=== PATIENT | female | born 1965 | race Two or more races ===

== ENCOUNTER 2022-03-20 11:54 | Emergency (ER) | payer MEDICAID, OTHER ==
[~2022-03-20] VITALS: Ht 170.2 cm; Wt 90.0 kg
[2022-03-20 14:07] VITALS: BP 119/99
== END 2022-03-20 15:53 | disposition home or self-care (01) ==
LOC: ER 11:54
DX: D23.71 Other benign neoplasm of skin of right lower limb, including hip (principal); M79.661 Pain in right lower leg
CPT/HCPCS: 93971

== ENCOUNTER 2024-12-18 16:04 | Inpatient (IN) | payer MEDICAID ==
[~2024-12-18] VITALS: Ht 170.2 cm; Wt 92.5 kg
[2024-12-18 16:08] VITALS: BP 159/96; RESP 16; TEMP 98.7; O2SAT 97
[2024-12-18 16:23] VITALS: PULSE 83
[2024-12-18 16:43] LABS: Hemoglobin 14.4 g/dL (12.2-16.2); Nucleated Red Blood Cells % 0.1 %
[2024-12-18 16:44] LABS: Hematocrit 41.8 % (36.0-46.0); Mean Corpuscular Hemoglobin 34.0 pg (28.0-32.0); Mean Corpuscular Volume 98.4 fL (80.0-100.0)
[2024-12-18 16:51] LABS: Chloride 106 mmol/L (98-107); Potassium 3.8 mmol/L (3.5-5.1); Sodium 142 mmol/L (136-145)
[2024-12-18 16:52] LABS: Anion Gap 10 (5-15); Carbon Dioxide 26 mmol/L (20-31)
[2024-12-18 16:53] LABS: Calcium 9.3 mg/dL (8.7-10.4)
[2024-12-18 16:57] LABS: BUN/Creatinine Ratio 13.3 (10.0-20.0); Blood Urea Nitrogen 12 mg/dL (9-23); Glucose 118 mg/dL (74-106)
--- NOTE | 2024-12-18 16:58 | ED.PDOC ---
History of Present Illness HPI Comments 59-year-old female with a history of hypertension, presents with chief complaint of dizziness, headache, lethargy, and bleeding from her left ear status post mechanical fall and head injury. Patient reports on onset of symptoms, today, following recent fall and head injury a few days ago. No reported loss of consciousness then. No reported modifiers. No history of previous head injuries in the past. Denies any weakness, numbness, tingling, or further associated symptoms. Chief Complaint: Dizziness Time Seen by MD: 16:10 Reviewed Notes: Nurses Notes, Medications, Allergies Allergies: Coded Allergies: NO KNOWN ALLERGIES (Unverified , 03/20/22) Information Source: Patient Mode of Arrival: Ambulatory Severity: Moderate Timing: Hours Duration: Since onset Prehospital treatment: None Past Medical History PAST MEDICAL HISTORY: Cancer, HTN Family History Family History: Reviewed,noncontributory to illness All Other Systems: Reviewed and Negative (Comprehensive review of systems are negative unless otherwise stated in the HPI) Physical Exam General Appearance: Moderate Distress HEENT: Normal ENT Inspection, Pharynx Normal, TMs Normal Neck: Full Range of Motion, Non-Tender, Normal, Normal Inspection Respiratory: Chest Non-Tender, Lungs Clear, No Accessory Muscle Use, No Respiratory Distress, Normal Breath Sounds Cardiovascular: No Edema, No JVD, No Murmur, No Gallop, Normal Peripheral P ulses, Regular Rate/Rhythm Breast Exam: Deferred Gastrointestinal: No Organomegaly, Non Tender, No Pulsatile Mass, Normal Bowel Sounds, Soft Genitalia: Deferred Pelvic: Deferred Rectal: Deferred Extremities: No calf tenderness, Normal capillary refill, Normal inspection, Normal range of motion, Non-tender, No pedal edema Musculoskeletal : Apperance: Normal Neurologic: Alert, tile mason II-XII nml as Tested, No Motor Deficits, Normal Affect, Normal Mood, No Sensory Deficits Cerebellar Function: Normal Reflexes: Normal Skin: Dry, Normal Color, Warm Peripheral Pulses: 3+ Radial (R), 3+ Radial (L) Lymphatic: No Adenopathy Was a procedure done? Was a procedure done?: No Differential Dx Considerations may include: Differential diagnoses considered include but are not limited to closed head inj ury, skull fracture, spinal fracture, spinal injury, cardiac contusion, contusions, soft tissue injury, vascular injury, other X-Ray, Labs, Meds, VS Vital Signs Date Time Temp Pulse Resp B/P (MAP) Pulse Ox O2 Delivery O2 Flow Rate FiO2 12/18/24 16:23 83 12/18/24 16:08 98.7 83 16 159/96 97 98.7 Lab Test 12/18/24 16:30 Range/Units White Blood Count 6.3 4.4-10.8 10^3/uL Red Blood Count 4.25 4.0-5.20 10^6/uL Hemoglobin 14.4 12.2-16.2 g/dL Hematocrit 41.8 36.0-46.0 % Mean Corpuscular Volume 98.4 80.0-100.0 fL Mean Corpuscular Hemoglobin 34.0 H 28.0-32.0 pg Mean Corpuscular Hemoglobin Concent 34.6 32.0-36.0 g/dL Red Cell Distribution Width 12.9 11.8-14.3 % Platelet Count 279 140-450 10^3/uL Mean Platelet Volume 6.7 L 6.9-10.8 fL Neutrophils (%) (Auto) 61.5 37.0-80.0 % Lymphocytes (%) (Auto) 26.8 10.0-50.0 % Monocytes (%) (Auto) 9.2 0.0-12.0 % Eosinophils (%) (Auto) 1.6 0.0-7.0 % Basophils (%) (Auto) 0.9 0.0-2.0 % Neutrophils # (Auto) 3.9 1.6-8.6 10 ^3/uL Lymphocytes # (Auto) 1.7 0.4-5.4 10 ^3/uL Monocytes # (Auto) 0.6 0-1.3 10 ^3/uL Eosinophils # (Auto) 0.1 0-0.8 10 ^3/uL Basophils # (Auto) 0.1 0-0.2 10 ^3/uL Nucleated Red Blood Cells 0.1 % Sodium Level 142 136-145 mmol/L Potassium Level 3.8 3.5-5.1 mmol/L Chloride Level 106 98-107 mmol/L Carbon Dioxide Level 26 20-31 mmol/L Anion Gap 10 5-15 Blood Urea Nitrogen 12 9-23 mg/dL Creatinine 0.90 0.550-1.02 mg/dL Glomerular Filtration Rate Calc 73 >90 mL/min BUN/Creatinine Ratio 13.3 10.0-20.0 Serum Glucose 118 H 74-106 mg/dL Calcium Level 9.3 8.7-10.4 mg/dL Troponin I High Sensitivity 3 L </=34 ng/L Patient alert. Complaining of dizziness. She did fall landing on her head. Vitals stable. Possible TIA. Cardiac marker within normal limits. Blood pressure elevated. Was given clonidine. CT of the head. Possibly need MRI. EKG reviewed does not show any acute changes. Explained to the patient. Continue monitoring. Time of 1ST Reevaluation: 16:40 Reevaluation 1ST: Unchanged Patient Education/Counseling: Diagnosis, Treatment Family Education/Counseling: No Family Present SEPSIS Sepsis Screen Date sepsis recognized/suspect: Dec 18, 2024 Time Sepsis recognized/suspect: 1607 Recent Procedure: No On Antibiotic Therapy: No Respiratory Rate >20: No Heart Rate >90: No Temp<36 C (96.8 F) or >38.3 C: No SBP <90 or MAP <65 mmHG: No New Acute Mental Status Change: No Is the patient on CPAP, BIPAP,: No Physician Orders Urinalysis (12/18/24 16:18) Electrocardigram (12/18/24 16:32) Head Without Contrast (12/18/24 17:15) Vital Signs Date Time Temp Pulse Resp B/P (MAP) Pulse Ox O2 Delivery O2 Flow Rate FiO2 12/18/24 16:23 83 12/18/24 16:08 98.7 83 16 159/96 97 98.7 Laboratory Tests Test 12/18/24 16:30 White Blood Count 6.3 10^3/uL (4.4-10.8) Departure 1 Departure Time of Disposition: 17:17 Impression: Primary Impression: Head injury Qualified Codes: S09.90XA - Unspecified injury of head, initial encounter Additional Impression: HTN (hypertension) Qualified Codes: I10 - Essential (primary) hypertension Disposition: ADMITTED INPATIENT Admit to: Med Surg Condition: Guarded Critical Care Note Critical Care Time?: No Stability Stability form required: No Heart Score Heart Score: Heart Score Response (Comments) Value History Slightly Suspicious 0 EKG Normal 0 Age 45-64 1 Risk Factors >3 or Hx ASHD 2 Troponin Normal limit 0 Total 3 I personally scribed for VICTORIANO OCHOA MD ([email or web address]) on 12/18/24 at 16:58. Electronically submitted by Jairo Krause ([email or web address]). VICTORIANO OCHOA MD Dec 18, 2024 16:58
--- NOTE | 2024-12-18 18:01 | DVH ---
CT HEAD WITHOUT CONTRAST Indication: fall EXAM DATE: 12/18/2024 05:24 PM COMPARISON: None TECHNIQUE: CT of the head without intravenous contrast. RADIATION DOSE: CTDIvol: 53.33 mGy, DLP: 1051 mGy*cm FINDINGS: There is no intracranial hemorrhage. There is no extra-axial fluid, mass, mass effect or midline shif t. The ventricles are midline and normal in size. Basilar cisterns are patent. Mild periventricular a nd subcortical white matter chronic microvascular ischemic changes. 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 Imaged portion of the orbits are unremarkabl e. IMPRESSION: No intracranial hemorrhage or mass effect. Mild chronic microvascular ischemic changes.
--- NOTE | 2024-12-19 06:17 | ECG ---
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
--- NOTE | 2024-12-19 08:43 | DVHHPRES ---
History of Present Illness Resident Creating Document: NORI CONNORS RESIDENT History of Present Illness Argenis is a 59-year-old female with past medical history of hypertension, melanoma who presented to the ED with chief complaints of dizziness, headache, lethargy and sudden bleeding from her left ear yesterday morning. Patient states that she had a fall due to loss of balance and her left ankle weakness 1 week ago and had a head injury. Patient states that her swelling has decreased in her head, patient denies loss of consciousness, no previous falls, numbness, tingling, headaches, nausea, vomiting, diarrhea, constipation, fever, chills. Patient reports no acute complaints at this time. Surgical history: Left ankle surgery Family history: Noncontributory Personal history: Denies smoking, drinking, drug use Lives with: Family Review of Systems Constitutional: Yes: Weakness, Other (Dizziness); No: Fever, Chills, Sweats, Malaise Eyes: No: Pain, Vision change, Conjunctivae inflammation, Eyelid inflammation, Other, Redness ENT: Ear discharge (Bloody discharge in left ear); No: Ear pain, Nose pain, Nose discharge, Nose congestion, Mouth pain, Mouth swelling, Throat pain, Throat swelling, Other Respiratory: No: Cough, Dry, Shortness of breath, SOB with excertion, Wheezing, Hemoptysis, Pleuritic Pain, Sputum, Wheezing, Other Cardiovascular: No: Chest Pain, Palpitations, Orthopnea, Paroxysmal Noc. Dyspnea, Edema, Lt Headedness, Other Gastrointestinal: Nausea; No: Vomiting, Abdominal Pain, Diarrhea, Constipation, Melena, Hematochezia, Other Genitourinary: No Dysuria, No Frequency, No Incontinence, No Hematuria, No Ret ention, No Other Musculoskeletal: No: other, neck pain, shoulder pain, arm pain, back pain, hand pain, leg pain, foot pain Skin: No: Rash, Lesions, Jaundice, Bruising, Other Neurological: No: Weakness, Numbness, Incoordination, Change in speech, Confusion, Seizures, Other Allergies: Coded Allergies: NO KNOWN ALLERGIES (Unverified , 03/20/22) Exam Vital Signs Vital Signs Date Time Temp Pulse Resp B/P (MAP) Pulse Ox O2 Delivery O2 Flow Rate FiO2 12/18/24 16:23 83 12/18/24 16:08 98.7 16 159/96 97 98.7 Exam General: Patient alert and oriented in person, place and time. Patient following commands. HEENT: Normocephalic, atraumatic, moist mucous membranes, dried blood seen in the left ear canal Respiratory/pulmonary: Clear lungs bilaterally, vesicular murmurs present in almost all lung m[place], no associated crackles or wheezes. Cardiovascular: Normal heart sounds S1 and S2 with no associated murmurs Abdomen: Abdomen nondistended, there is no pain to palpation in any of the abdominal quadrants, no palpable masses. Extremities: There is no peripheral edema present at the lower extremities. Peripheral Pulses: 3+ Radial (R). 3+ Radial (L). 3+ Dorsalis pedis (R). 3+ Dorsalis pedis(L) Skin: No rashes or pruritus, there is no sacral edema present at this time. Neurological: Intact cranial nerves with no focal neurologic deficits Labs/Xrays Labs Test 12/18/24 16:30 Range/Units White Blood Count 6.3 4.4-10.8 10^3/uL Red Blood Count 4.25 4.0-5.20 10^6/uL Hemoglobin 14.4 12.2-16.2 g/dL Hematocrit 41.8 36.0-46.0 % Mean Corpuscular Volume 98.4 80.0-100.0 fL Mean Corpuscular Hemoglobin 34.0 H 28.0-32.0 pg Mean Corpuscular Hemoglobin Concent 34.6 32.0-36.0 g/dL Red Cell Distribution Width 12.9 11.8-14.3 % Platelet Count 279 140-450 10^3/uL Mean Platelet Volume 6.7 L 6.9-10.8 fL Neutrophils (%) (Auto) 61.5 37.0-80.0 % Lymphocytes (%) (Auto) 26.8 10.0-50.0 % Monocytes (%) (Auto) 9.2 0.0-12.0 % Eosinophils (%) (Auto) 1.6 0.0-7.0 % Basophils (%) (Auto) 0.9 0.0-2.0 % Neutrophils # (Auto) 3.9 1.6-8.6 10 ^3/uL Lymphocytes # (Auto) 1.7 0.4-5.4 10 ^3/uL Monocytes # (Auto) 0.6 0-1.3 10 ^3/uL Eosinophils # (Auto) 0.1 0-0.8 10 ^3/uL Basophils # (Auto) 0.1 0-0.2 10 ^3/uL Nucleated Red Blood Cells 0.1 % Sodium Level 142 136-145 mmol/L Potassium Level 3.8 3.5-5.1 mmol/L Chloride Level 106 98-107 mmol/L Carbon Dioxide Level 26 20-31 mmol/L Anion Gap 10 5-15 Blood Urea Nitrogen 12 9-23 mg/dL Creatinine 0.90 0.550-1.02 mg/dL Glomerular Filtration Rate Calc 73 >90 mL/min BUN/Creatinine Ratio 13.3 10.0-20.0 Serum Glucose 118 H 74-106 mg/dL Calcium Level 9.3 8.7-10.4 mg/dL Troponin I High Sensitivity 3 L </=34 ng/L SEPSIS Sepsis Screen Date sepsis recognized/suspect: Dec 18, 2024 Time Sepsis recognized/suspect: 1608 Recent Procedure: No On Antibiotic Therapy: No Respiratory Rate >20: No Heart Rate >90: No Temp<36 C (96.8 F) or >38.3 C: No SBP <90 or MAP <65 mmHG: No New Acute Mental Status Change: No Is the patient on CPAP, BIPAP,: No Assessment/Plan Assessment/Plan Assessment and plan # otorrhagia # history of mechanical fall - head CT showed no intracranial hemorrhage or mass effect. Mild chronic microvascular ischemic changes. - temporal bone CT - monitor labs # hypertension - we will resume home meds Goals of care addressed with the patient for more than 27 minutes: Full code status Case discussed with Dr. Crooks, patient and nurse Plan discussed with: Patient Date of Service: Dec 19, 2024 Billing Provider: JORGE CROOKS MD Common Visit Codes: 47553-SNAECUD INP/OBS CARE (HIGH) Secondary Visit Codes: 46075-SBJWONNA CARE PLAN 30 MINUTES NORI CONNORS RESIDENT Dec 19, 2024 08:43
--- NOTE | 2024-12-19 08:44 | DVHDSRES ---
Discharge Summary Date of Admission Resident Creating Document: NORI CONNORS Dec 18, 2024 at 22:32 Date of Discharge: Dec 18, 2024 Admitting Diagnosis Otorrhagia Labs/Diagnostic Data: Laboratory Results Test 12/18/24 16:30 White Blood Count 6.3 10^3/uL (4.4-10.8) Red Blood Count 4.25 10^6/uL (4.0-5.20) Hemoglobin 14.4 g/dL (12.2-16.2) Hematocrit 41.8 % (36.0-46.0) Mean Corpuscular Volume 98.4 fL (80.0-100.0) Mean Corpuscular Hemoglobin 34.0 pg (28.0-32.0) Mean Corpuscular Hemoglobin Concent 34.6 g/dL (32.0-36.0) Red Cell Distribution Width 12.9 % (11.8-14.3) Platelet Count 279 10^3/uL (140-450) Mean Platelet Volume 6.7 fL (6.9-10.8) Neutrophils (%) (Auto) 61.5 % (37.0-80.0) Lymphocytes (%) (Auto) 26.8 % (10.0-50.0) Monocytes (%) (Auto) 9.2 % (0.0-12.0) Eosinophils (%) (Auto) 1.6 % (0.0-7.0) Basophils (%) (Auto) 0.9 % (0.0-2.0) Neutrophils # (Auto) 3.9 10 ^3/uL (1.6-8.6) Lymphocytes # (Auto) 1.7 10 ^3/uL (0.4-5.4) Monocytes # (Auto) 0.6 10 ^3/uL (0-1.3) Eosinophils # (Auto) 0.1 10 ^3/uL (0-0.8) Basophils # (Auto) 0.1 10 ^3/uL (0-0.2) Nucleated Red Blood Cells 0.1 % Sodium Level 142 mmol/L (136-145) Potassium Level 3.8 mmol/L (3.5-5.1) Chloride Level 106 mmol/L (98-107) Carbon Dioxide Level 26 mmol/L (20-31) Anion Gap 10 (5-15) Blood Urea Nitrogen 12 mg/dL (9-23) Creatinine 0.90 mg/dL (0.550-1.02) Glomerular Filtration Rate Calc 73 mL/min (>90) BUN/Creatinine Ratio 13.3 (10.0-20.0) Serum Glucose 118 mg/dL (74-106) Calcium Level 9.3 mg/dL (8.7-10.4) Troponin I High Sensitivity 3 ng/L (</=34) Other Laboratory Tests 12/18/24 16:30 Brief Hx & Hospital Course: Argenis is a 59-year-old female with past medical history of hypertension, melanoma who presented to the ED with chief complaints of dizziness, headache, lethargy and sudden bleeding from her left ear yesterday morning. Patient states that she had a fall due to loss of balance and her left ankle weakness 1 week ago and had a head injury. Patient states that her swelling has decreased in her head, patient denies loss of consciousness, no previous falls, numbness, tingling, headaches, nausea, vomiting, diarrhea, constipation, fever, chills. Patient reports no acute complaints at this time. Brief hospital course: Patient was admitted for otorrhagia. Patient had a CT head done which showed no intracranial hemorrhage or mass effect. Mild chronic microvascular ischemic changes. Patient was advised to stay for further evaluation of her ear bleed. But patient had eloped before undergoing further evaluation management. Condition at Discharge: Undetermined Final Diagnosis/Problems List otorrhagia mechanical fall Hypertension History of melanoma Discharge Disposition: Eloped Discharge Statement: "Patient was advised to return to the ER or call 911 if any headaches, dizziness, shortness of breath, chest pain, abdominal pain, bleeding, fevers, or worsening of medical condition. Patient was counseled about treatment plan, medications, possible side effects, patientverbalized understanding. All questions were answered to the best of my ability. This discharge took greater then 30 minutes in planning, reviewing documentation, counseling the patient, and discussing with other team members." ASSESSMENT ASSESSMENT Assessment NORI CONNORS RESIDENT Dec 19, 2024 08:44
== END 2024-12-18 23:10 | disposition left against medical advice (07) | DRG 115 ==
LOC: ER 16:04 → OVERFLOW 22:32
PROVIDERS: ADMIT Internal Medicine; ATTEND Internal Medicine
DX: H92.22 Otorrhagia, left ear (principal); I10 Essential (primary) hypertension; Z85.89 Personal history of malignant neoplasm of other organs and systems; Z85.820 Personal history of malignant melanoma of skin
CPT/HCPCS: 36415; 70450; 80048; 84484; 85025; 93005; G0378